=== PATIENT | male | born 1995 | race Caucasian/White ===

== ENCOUNTER 2022-04-20 15:49 | Outpatient (CLI) | payer BC | END 2022-04-20 15:50 | disposition home or self-care (01) | LOC: SCSRAD 15:49 | PROVIDERS: ATTEND Orthopaedic Surgery | DX: M54.50 Low back pain, unspecified (principal) | CPT/HCPCS: 72100 ==

== ENCOUNTER 2024-01-25 12:20 | Outpatient (CLI) | payer BC | END 2024-01-25 12:21 | disposition home or self-care (01) | LOC: SCSRAD 12:20 | PROVIDERS: ATTEND Orthopaedic Surgery | DX: M54.2 Cervicalgia (principal); M47.812 Spondylosis without myelopathy or radiculopathy, cervical region; Z98.890 Other specified postprocedural states | CPT/HCPCS: 72040 ==